=== PATIENT | male | born 1935 | race Two or more races ===

== ENCOUNTER 2018-02-07 15:33 | Outpatient (CLI) | payer OTHER | END 2018-02-07 16:00 | disposition home or self-care (01) | LOC: RAD 15:33 | DX: C67.0 Malignant neoplasm of trigone of bladder (principal) ==

== ENCOUNTER 2022-08-11 13:40 | Emergency (ER) | payer OTHER ==
[~2022-08-11] VITALS: Ht 177.8 cm; Wt 97.5 kg
[2022-08-11] MEDS ORDERED: PREDNISONE10 M2 (14:34)
[2022-08-11] MEDS ORDERED: LIVALO4 MG (14:34)
[2022-08-11] MEDS ORDERED: ALLERGY RELIEF180 MG (14:34)
[2022-08-11] MEDS ORDERED: VALSARTAN320 MG (14:34)
[2022-08-11] MEDS ORDERED: SYNTHROID100 MCG (14:34)
[2022-08-11] MEDS ORDERED: DOLOGEN CAPLET1 EACH PO (16:55)
== END 2022-08-11 18:15 | disposition home or self-care (01) ==
LOC: ER 13:40
DX: M12.511 Traumatic arthropathy, right shoulder (principal); Z88.2 Allergy status to sulfonamides

== ENCOUNTER 2022-10-25 13:52 | Outpatient (CLI) | payer OTHER ==
[~2022-10-25 13:52] MED LIST: ALLERGY RELIEF180 MG; DOLOGEN CAPLET1 EACH PO; LIVALO4 MG; PREDNISONE10 M2; SYNTHROID100 MCG; VALSARTAN320 MG
== END 2022-10-25 14:06 | disposition home or self-care (01) ==
LOC: SONOGRAMA 13:52
PROVIDERS: ATTEND Internal Medicine Rheumatology
DX: M75.81 Other shoulder lesions, right shoulder (principal)

== ENCOUNTER → 2023-03-21 | Outpatient (CLI) | payer OTHER | END | disposition home or self-care (01) | LOC: MRI 12:20 | PROVIDERS: ATTEND Physical Medicine & Rehabilitation | DX: M25.511 Pain in right shoulder (principal); Z88.2 Allergy status to sulfonamides | CPT/HCPCS: 73218 ==